=== PATIENT | female | born 1935 | race Caucasian/White ===

== ENCOUNTER 2017-07-25 07:29 | Outpatient (CLI) | payer MEDICARE, OTHER | END 2017-07-25 07:30 | disposition home or self-care (01) | LOC: BICMAMMO 07:29 | PROVIDERS: ATTEND Specialist | DX: Z12.31 Encounter for screening mammogram for malignant neoplasm of breast (principal) | CPT/HCPCS: 77063; G0202; 77067 ==

== ENCOUNTER 2018-03-13 08:30 | Inpatient (IN) | payer MEDICARE, OTHER ==
[2018-03-13 08:54] VITALS: BMI 26.6
[2018-03-18] MEDS ORDERED: Sodium Chloride 0.9% 100 ML ONE (07:57)
[2018-03-18] MEDS ORDERED: CEFAZOLIN/Water 2 GM/20 ML SYRINGE ONE (07:57)
[2018-03-18] MEDS ORDERED: Fentanyl 100 MCG/2 ML VIAL ONE (10:13)
[2018-03-18] MEDS ORDERED: Midazolam HCl 2 mg/2 ml Vial ONE (10:13)
[2018-03-18] MEDS ORDERED: Zolpidem Tartrate 5 MG TAB PO PRN ×2 (10:38→11:10)
[2018-03-18] MEDS ORDERED: traMADol HCl 50 MG TAB PO PRN ×3 (10:38→11:10)
[2018-03-18] MEDS ORDERED: Ketorolac Tromethamine 30 MG/ML VIAL IVP PRN (10:38)
[2018-03-18] MEDS ORDERED: Ondansetron HCl/PF 4 MG/2 ML Vial IVP PRN ×3 (10:38→12:29)
[2018-03-18] MEDS ORDERED: Promethazine HCl 25 MG/ML VIAL IM PRN ×3 (10:38→12:29)
[2018-03-18] MEDS ORDERED: Fentanyl 100 MCG/2 ML VIAL IV PRN (10:39)
[2018-03-18] MEDS ORDERED: HYDROcodone/Acetaminophen 7.5/325 mg Tablet PO PRN (10:39)
[2018-03-18] MEDS ORDERED: HYDROcodone/Acetaminophen 10/325 mg Tablet PO PRN (11:10)
[2018-03-18] MEDS ORDERED: diphenhydrAMINE 25 MG CAP PO PRN (11:10)
[2018-03-18] MEDS ORDERED: Acetaminophen 325 MG TAB PO PRN (11:10)
[2018-03-18] MEDS ORDERED: Alendronate Sodium 70 mg Tablet PO SCH (11:15)
[2018-03-18] MEDS ORDERED: Promethazine HCl 25 MG/ML VIAL SLOW IVP PRN (12:29)
--- NOTE | 2018-03-18 13:31 | OP ---
DATE OF PROCEDURE: 03/18/2018 PREOPERATIVE DIAGNOSIS: End-stage tricompartmental osteoarthritis, right knee. POSTOPERATIVE DIAGNOSIS: End-stage tricompartmental osteoarthritis, right knee. OPERATIVE PROCEDURE: Cemented cruciate-sparing computer-assisted navigated right total knee arthropl chelsi. SURGEON: David Oneill M.D. HOLE PUNCHER STRAP: Benjamin Agustin PA-C. ANESTHESIA: General via laryngeal mask airway augmented with indwelling femoral adductor canal block as well as single shot sciatic block. COMPONENTS USED: [employer] Triathlon primary cemented cruciate-sparing size 4 femoral comp onent with a primary cemented, size 4 tibial baseplate, 9 mm polyethylene fixed bearing insert, A29 p atellar button. TOURNIQUET TIME: 60 minutes at 300 mmHg. FLUIDS: 1000 mL crystalloid. OUTPUT: 200 mL clear yellow urine. ESTIMATED BLOOD LOSS: Less than 100 mL. DRAINS: None. SPECIMENS: None. COMPLICATIONS: None. COUNTS: Correct. FINDINGS: End-stage severe degenerative tricompartmental disease, bone on bone arthrosis, periarticu lar osteophyte formation, large serous effusion, hypertrophic synovium, and large periarticular float ing osteophyte at posterior compartments. INDICATIONS FOR SURGERY: Anisha is an 83-year-old white female who has had progressive right knee pain amplified with standing and walking for the last 10-12 years. She has failed conservative managemen t and elected to proceed with total knee arthroplasty as a definitive treatment of her pain. PROCEDURE IN DETAIL: After informed consent was obtained in the preoperative holding area. The romario ent was taken to the operative suite where general anesthesia was induced. Once adequate level of ge neral anesthesia was obtained, the patient was positioned and a well-padded tourniquet was placed elder und the right proximal thigh. The right lower extremity was then prepped and draped in the usual doc rile fashion. Prior to exsanguination, a time out was called and all members of the surgical team ag anuj upon site, surgeon, and patient. The extremity was then exsanguinated and the tourniquet was ra ised. A midline longitudinal incision was then made directly over the patella extending two fingerbr eadths above the superior pole of the patella and two fingerbreadths inferior to the inferior patella r pole of the patella. Deeper subcutaneous layers were dissected sharply and local bleeding was cont rolled with Bovie electrocautery. A quad tendon longitudinal split was then made sharply and a media n parapatellar arthrotomy was carried out both sharp and with Bovie electrocautery, carried down to o ne fingerbreadth medial to the tibial tubercle. The knee was then placed into flexion and the patell a was everted nicely, and a copious fat pad ectomy was performed allowing for greater exposure of the tibia. The computer-assisted distal femoral fiducial was then placed and pinned firmly, and the dis josefina femoral cutting guide was pinned firmly into place. The oscillating saw was then used to remove the appropriate amount of bone. The 4-in-1 cutting block was then placed on the distal femur and the oscillating saw was used to remove the appropriate amount of bone off of the anterior, posterior, an d chamfer cuts. After completion of the chamfer cuts, the box-cutting guide was placed, malleted fir mly into place and pinned securely, and an osteotome was used to make the distal cut and the oscillat ing saw was then used to make the medial and lateral box cuts. This came out quite nicely and was re moved with Bovie electrocautery, and the oscillating saw was then used to broaden the lateral medial nguyen of the box cut. After completion of bone cuts, the anterior cruciate ligament was resected sha rply and the posterior cruciate ligament retractor was placed and the tibia was subluxed for better e xposure. Partial meniscectomies were carried out, and the tibial computer-assisted fiducial was pinn ed, and the cutting guide was placed. Oscillating saw was then used to remove the bone with Hohmann retractors used to take care and protect the collateral ligaments. After the tibial resection was pe rformed, a laminar campus rep was placed in between the freshened bone cuts. The knee placed at 90 deg devon and further bilateral meniscectomies were carried out, and the curved osteotome and curettage wa s used to remove any excess bone spurs in the posterior compartment. The trial femoral component, ti bial baseplate were placed with the appropriate polyethylene trial insert with an appropriate polyeth ylene spacer and patellar button. The knee was taken through full range of motion with flexion and e xtension from 0-90 degrees and patellar broach squarely in the trochlea without any squinting or sub luxation noted. The knee was also stable to varus and valgus stressing at 0, 15, 45, and 90 degrees of flexion. The drawer was negative. All trial components were then removed and the keel punch was u sed to provide the appropriate defect in the tibia with a mallet. The freshened bone cuts were copio usly irrigated with pulsatile lavage of about 1-1/2 liters to remove all excess debris. The freshene d bone cuts were then dried and with suction and lap sponge. The knee was placed in flexion and retr actors were placed to provide access to all bone cuts. Tobramycin impregnated methyl methacrylate ce ment was then placed on the freshened bone cuts and implants which were malleted firmly into place. Curettage and [place] elevators were used to remove any excess bone cement. The knee was placed into f ull extension and the patellar button was placed under compression, and the cement was allowed to cur e. Once completed, the components were again taken through full range of motion and copious irrigati on of the knee was carried out with another liter of normal saline. All components were inspected fu lly with full range of motion and varus and valgus stressing. There was no laxity noted and full exte nsion was observed clinically. Primary closure was accomplished with #2 interrupted Vicryl stitch of the arthrotomy defect. This was oversewn with a #2 running Quill barbed stitch. The subcutaneous l carmella was then closed with a running 0 barbed Monocryl stitch and skin closure accomplished with a run mark subcuticular 3-0 Monocryl barbed Quill stitch and augmented with cement on the skin. Tourniquet was lowered. Good spontaneous return of distal pulses was noted clinically and a sterile dressing w as applied to the incision. The procedure was terminated without any complications. The patient was awakened in the operative suite and taken to the recovery room in stable condition.
[2018-03-18] MEDS ORDERED: Ondansetron HCl/PF 4 MG/2 ML Vial ONE (15:24)
[2018-03-18] MEDS ORDERED: PROPOFOL 200 MG/20 ML VIAL ONE (15:24)
[2018-03-18] MEDS ORDERED: Lidocaine 1% PF 5 ML VIAL ONE (15:24)
[2018-03-18] MEDS ORDERED: PHENYLEPHRINE-NS 100 MCG/ML 10 ML SYRINGE ONE (15:24)
--- NOTE | 2018-03-18 15:54 | RAD ---
RIGHT KNEE TWO VIEWS: History: Post op knee replacement follow up. FINDINGS/IMPRESSION: Post op changes are noted. Knee prosthesis has been placed. The component appear in adequate position and alignment. POS: [facility]
[2018-03-18] MEDS: CEFAZOLIN/Water 2 GM/20 ML SYRINGE SLOW IVP SCH ×2 (17:40→21:00)
[2018-03-18] MEDS: Carvedilol 6.25 MG TAB PO SCH (18:18)
[2018-03-18] MEDS: Sodium Chloride 0.9% 1,000 ML IV SCH ×2 (18:37→23:13)
[2018-03-18] MEDS: Aspirin 81 mg Enteric Coated Tablet PO SCH (20:53)
[2018-03-18] MEDS: Rosuvastatin 10 MG TAB PO SCH (20:54)
[2018-03-18] MEDS: Dronedarone HCl 400 MG TAB PO SCH (20:54)
[2018-03-18] MEDS: HYDROcodone/Acetaminophen 10/325 mg Tablet PO PRN (20:58)
[2018-03-18] MEDS ORDERED: Calcium Carbonate + Vit D 1 TAB PO SCH (21:00)
[2018-03-18] MEDS ORDERED: Non-Formulary Item 1 EACH (Ferrous Sulfate [Ferrous Sulfate] 325 MG) PO SCH (21:00)
--- NOTE | 2018-03-19 00:33 | CON ---
DATE OF CONSULTATION: 03/18/2018 CHIEF COMPLAINT ON ADMISSION: Right total knee replacement. HISTORY OF PRESENT ILLNESS: The patient is an 83-year-old female who has been struggling with arthri tis and pain in her right knee. She finally was needed replacement and saw Dr. David Oneill for such . He performed right total knee replacement on the day of consultation on 03/18/2018 and she has awo jocelynn from anesthesia without complaints of pain in the right knee. She denies any chest pain, shortne ss of breath or trouble with mentation. She feels very good and has had a good appetite, had no trou ble holding down her dinner. PAST MEDICAL HISTORY: Significant for dyslipidemia, postmenopausal, degenerative joint disease, GERD , hypertension, osteopenia, insomnia. PAST SURGICAL HISTORY: Hysterectomy, total abdominal hysterectomy with bilateral salpingo-oophorecto my, cataract surgery, and left total knee replacement done in 08/2015. She has also had a normal col onoscopy with benign polyps. ALLERGIES: SULFA. MEDICATIONS ON ADMISSION: Crestor 10 mg at bedtime, omeprazole 40 mg daily, aspirin 325 mg daily, ov er the counter Tums, Lunesta 1 mg at bedtime, Valsartan HCT 160/12.5 once a day, Premarin 0.3 mg yakelin y, Lanoxin unknown dosage; Multaq I believe 100 mg b.i.d., Tramadol 50 mg q.6 hours p.r.n. pain, milk of magnesia p.r.n. constipation, and Fosamax 70 mg once a week for osteopenia. FAMILY HISTORY: Father is . Mother is . Unknown. REVIEW OF SYSTEMS: General: Patient denies any fever, fatigue or malaise. HEENT: Denies headache, blurred vision. ENT: No sores, discharge from pharynx, ears or mouth. Neck: Denies any pain with range of motion. Chest: Denies shortness of breath or cough. Heart: Denies palpitations or irreg ular heartbeat. Abdomen: Denies nausea, vomiting, diarrhea. : Denies any blood in urine or stoo l or painful urination. Musculoskeletal: Has a wrap with numb right knee at this time, but otherwis e no significant discomfort. Skin: Without rashes or lesions. Neurologic: Denies any confusion or paresthesias. She does have anesthesia in the area of the right knee postop. PHYSICAL EXAMINATION: VITAL SIGNS: On admission, blood pressure is 115/55, O2 sat 95%, respirations 18, pulse 76, temperat ure 97.9. She weighs 155 pounds and denies any pain currently, so that would be a 0. GENERAL: She is well-developed elderly female, alert, oriented, and cooperative. HEENT: Normocephalic and atraumatic. Pupils are equal, round, and reactive to light. Extraocular m uscles intact. Arcus senilis bilaterally. TMs, nares, pharynx are clear. NECK: Supple, trachea midline, no mass. CHEST: Clear to auscultation. BREAST: Deferred. HEART: Regular rate and rhythm without murmur. ABDOMEN: Soft, nontender, no appreciable organomegaly. GENITOURINARY: Deferred. EXTREMITIES: With the right knee wrapped in Maximo wraps and cool compress in place, IV of pain medicat ion flowing. Other extremities without clubbing, cyanosis, or edema. SKIN: Without rashes or lesions. NEUROLOGIC: Cranial nerves are intact. Sensory exam except for the right knee is grossly intact. M ental status is at baseline. Unable to test gait and cerebellar function at this time or deep tendon reflexes. LABORATORY DATA: Lab work thus far, there is none. ASSESSMENT: 1. Status post right total knee replacement -- doing very well. 2. History of hypertension. 3. History of cardiac arrhythmia, stable. 4. Hypothyroid. PLAN: Plan is to continue patient on her usual medications. Pain management will be per Anesthesia. We will monitor her vital signs and provide any other assistance as needed. She will be serially r e-evaluated while in the hospital.
[2018-03-19] MEDS: HYDROcodone/Acetaminophen 7.5/325 mg Tablet PO PRN ×3 (01:21→13:55)
[2018-03-19] MEDS ORDERED: CEFAZOLIN/Water 2 GM/20 ML SYRINGE SLOW IVP SCH (05:00)
[2018-03-19] MEDS: Sodium Chloride 0.9% 1,000 ML IV SCH ×2 (06:45→19:06)
[2018-03-19 08:52] LABS: #Eosinphils 0.1 thou/uL (0.0-0.7); #Lymphocytes 0.7 thou/uL (1.20-3.40); #Monocytes 1.4 thou/uL (0.11-0.59); #Neutrophils 7.9 thou/uL (1.40-6.50); %Basophils 0.2 % (0.0-1.0); %Eosinophils 0.8 % (0.0-10.0); %Lymphocytes 6.9 % (21.0-51.0); %Monocytes 13.9 % (0.0-10.0); %Neutrophils 78.2 % (42.0-75.0); Hemoglobin 11.6 g/dL (12.0-16.0); Mean Corpuscular HGB CONC 34.3 g/dL (32.0-36.0); Mean Corpuscular Hemoglobin 31.6 pg (27.0-31.0); Mean Corpuscular Volume 92.2 fL (78.0-98.0); Mean Platelet Volume 8.3 fL (7.4-10.4); Platelet Count 138 thou/uL (130-400); Red Blood Cell (RBC) Count 3.67 mill/uL (4.20-5.40); White Blood Cell (WBC) Count 10.1 thou/uL (4.8-10.8)
[2018-03-19] MEDS ORDERED: Non-Formulary Item 1 EACH (Multivitamin [Multi-Vitamin Daily] 1 TAB) PO SCH (09:00)
[2018-03-19] MEDS ORDERED: Estrogens, Conjugated 0.3 MG TAB PO SCH (09:00)
[2018-03-19 09:10] LABS: Anion Gap 12 mmol/L (10-20); BUN (Urea Nitrogen) 12 mg/dL (9.8-20.1); Calc. Creatinine Clearance 51 mL/min (70-130); Calcium 8.9 mg/dL (7.8-10.44); Carbon Dioxide 25 mmol/L (23-31); Chloride 100 mmol/L (98-107); Estimated GFR-MDRD 58; Glucose 148 mg/dL (83-110); Potassium 4.6 mmol/L (3.5-5.1); Sodium 132 mmol/L (136-145)
[2018-03-19] MEDS: Senokot S 8.6-50 MG TAB PO SCH ×2 (09:11→20:33)
[2018-03-19] MEDS: Vit A,C & E/Lutein/Minerals Tablet PO SCH ×2 (09:11→20:33)
[2018-03-19] MEDS: Hydrochlorothiazide 25 MG TAB PO SCH (09:11)
[2018-03-19] MEDS: Dronedarone HCl 400 MG TAB PO SCH ×2 (09:12→20:30)
[2018-03-19] MEDS: Valsartan 80 MG TAB PO SCH (09:12)
[2018-03-19] MEDS: Ubidecarenone 50 MG CAP PO SCH (09:13)
[2018-03-19] MEDS: Ferrous Gluconate 324 MG TAB PO SCH ×2 (09:13→20:31)
[2018-03-19] MEDS: Multivitamin W/ Minerals 1 TAB PO SCH (09:13)
[2018-03-19] MEDS: Aspirin 81 mg Enteric Coated Tablet PO SCH ×2 (09:14→20:30)
[2018-03-19] MEDS: Carvedilol 6.25 MG TAB PO SCH ×2 (09:14→18:46)
[2018-03-19] MEDS: Enoxaparin Sodium 40 MG/0.4 ML SYRINGE SC SCH (09:15)
[2018-03-19] MEDS: Ropivacaine HCl/PF 250 ML in Premix Bag 1 BAG NERVE BLCK SCH (15:26)
[2018-03-19] MEDS: Rosuvastatin 10 MG TAB PO SCH (20:33)
[2018-03-20] MEDS: Sodium Chloride 0.9% 1,000 ML IV SCH ×2 (04:06→12:22)
[2018-03-20] MEDS: HYDROcodone/Acetaminophen 7.5/325 mg Tablet PO PRN (05:29)
[2018-03-20 05:39] LABS: Hemoglobin 10.4 g/dL (12.0-16.0); Mean Corpuscular Hemoglobin 30.9 pg (27.0-31.0); Mean Corpuscular Volume 90.8 fL (78.0-98.0); Platelet Count 148 thou/uL (130-400); RBC Distribution Width 11.9 % (11.5-14.5); Red Blood Cell (RBC) Count 3.38 mill/uL (4.20-5.40); White Blood Cell (WBC) Count 11.3 thou/uL (4.8-10.8)
[2018-03-20 05:48] LABS: Anion Gap 11 mmol/L (10-20); BUN (Urea Nitrogen) 14 mg/dL (9.8-20.1); Calc. Creatinine Clearance 58 mL/min (70-130); Calcium 9.2 mg/dL (7.8-10.44); Carbon Dioxide 27 mmol/L (23-31); Chloride 98 mmol/L (98-107); Estimated GFR-MDRD 68; Glucose 117 mg/dL (83-110); Sodium 132 mmol/L (136-145)
[2018-03-20] MEDS: Carvedilol 6.25 MG TAB PO SCH ×2 (08:30→17:19)
[2018-03-20] MEDS: Aspirin 81 mg Enteric Coated Tablet PO SCH ×2 (08:31→21:23)
[2018-03-20] MEDS: Vit A,C & E/Lutein/Minerals Tablet PO SCH ×2 (08:31→21:22)
[2018-03-20] MEDS: Senokot S 8.6-50 MG TAB PO SCH ×2 (08:33→21:23)
[2018-03-20] MEDS: Multivitamin W/ Minerals 1 TAB PO SCH (08:33)
[2018-03-20] MEDS: Hydrochlorothiazide 25 MG TAB PO SCH (08:34)
[2018-03-20] MEDS: Valsartan 80 MG TAB PO SCH (08:34)
[2018-03-20] MEDS: Dronedarone HCl 400 MG TAB PO SCH ×2 (08:36→21:24)
[2018-03-20] MEDS: Ubidecarenone 50 MG CAP PO SCH (08:36)
[2018-03-20] MEDS: Enoxaparin Sodium 40 MG/0.4 ML SYRINGE SC SCH (08:37)
[2018-03-20] MEDS: HYDROcodone/Acetaminophen 10/325 mg Tablet PO PRN (09:03)
[2018-03-20] MEDS: Ferrous Gluconate 324 MG TAB PO SCH ×2 (09:04→21:24)
[2018-03-20] MEDS: Ropivacaine HCl/PF 250 ML in Premix Bag 1 BAG NERVE BLCK SCH (19:30)
[2018-03-20] MEDS: Rosuvastatin 10 MG TAB PO SCH (21:23)
[2018-03-21] MEDS: Sodium Chloride 0.9% 1,000 ML IV SCH ×2 (01:27→12:10)
[2018-03-21 06:15] LABS: Hemoglobin 10.1 g/dL (12.0-16.0); Mean Corpuscular Hemoglobin 31.1 pg (27.0-31.0); Mean Corpuscular Volume 91.4 fL (78.0-98.0); Mean Platelet Volume 8.6 fL (7.4-10.4); Platelet Count 137 thou/uL (130-400); RBC Distribution Width 11.7 % (11.5-14.5); Red Blood Cell (RBC) Count 3.24 mill/uL (4.20-5.40); White Blood Cell (WBC) Count 9.7 thou/uL (4.8-10.8)
[2018-03-21] MEDS: Valsartan 80 MG TAB PO SCH (07:47)
[2018-03-21] MEDS: Carvedilol 6.25 MG TAB PO SCH (07:48)
[2018-03-21] MEDS: Ferrous Gluconate 324 MG TAB PO SCH (07:49)
[2018-03-21] MEDS: Aspirin 81 mg Enteric Coated Tablet PO SCH (07:49)
[2018-03-21] MEDS: Dronedarone HCl 400 MG TAB PO SCH (07:49)
[2018-03-21] MEDS: Vit A,C & E/Lutein/Minerals Tablet PO SCH (07:49)
[2018-03-21] MEDS: Enoxaparin Sodium 40 MG/0.4 ML SYRINGE SC SCH (07:50)
[2018-03-21] MEDS: Multivitamin W/ Minerals 1 TAB PO SCH (07:50)
[2018-03-21] MEDS: Senokot S 8.6-50 MG TAB PO SCH (07:50)
[2018-03-21] MEDS: Ubidecarenone 50 MG CAP PO SCH (07:50)
[2018-03-21] MEDS: Hydrochlorothiazide 25 MG TAB PO SCH (07:50)
[2018-03-21 08:22] VITALS: TEMP 98.8
[2018-03-21 11:59] VITALS: BP 103/65
--- NOTE | 2018-03-21 13:50 | EKG ---
Test Reason : Blood Pressure : / mmHG Vent. Rate : 113 BPM Atrial Rate : 300 BPM P-R Int : 000 ms QRS Dur : 088 ms QT Int : 278 ms P-R-T Axes : 000 048 047 degrees QTc Int : 381 ms Atrial fibrillation with rapid ventricular response Nonspecific ST abnormality , probably digitalis effect Abnormal ECG When compared with ECG of 13-MAR-2018 09:41, (Unconfirmed) Atrial fibrillation has replaced Electronic atrial pacemaker Vent. rate has increased BY [address] now depressed in Inferior leads Confirmed by SANDOVAL LANCASTER ([id number]) on 03/21/2018 1:50:14 PM Referred By: Tejal NOONAN Confirmed By:SANDOVAL LANCASTER
== END 2018-03-21 13:00 | DRG 470 ==
LOC: SJJU 03-18 07:24 → EDSTATUS 03-18 08:30 → SURG A 03-18 16:56
PROVIDERS: ADMIT Orthopaedic Surgery; ATTEND Orthopaedic Surgery
PROC: 0SRC0J9 Replacement of Right Knee Joint with Synthetic Substitute, Cemented, Open Approach (ICD-10-PCS; principal; 2018-03-18)
PROC: 8E0YXBZ Computer Assisted Procedure of Lower Extremity (ICD-10-PCS; 2018-03-18)
DX: M17.11 Unilateral primary osteoarthritis, right knee (principal); E78.5 Hyperlipidemia, unspecified; K21.9 Gastro-esophageal reflux disease without esophagitis; I10 Essential (primary) hypertension; M85.80 Other specified disorders of bone density and structure, unspecified site; E03.9 Hypothyroidism, unspecified; Z90.710 Acquired absence of both cervix and uterus; Z88.2 Allergy status to sulfonamides
CPT/HCPCS: 36415; 80048; 85027; 93005; 93010; C1713; C1776; G8978-GP-CK; G8979-GP-CI; J1650; J2001; J2250; J2405; J2704; J2795; J3010; J3370; J7050

== ENCOUNTER 2018-03-13 08:32 | Outpatient (CLI) | payer MEDICARE, OTHER ==
[2018-03-13 10:09] LABS: #Basophils 0.1 thou/uL (0.0-0.2); #Eosinphils 0.1 thou/uL (0.0-0.7); #Lymphocytes 1.6 thou/uL (1.20-3.40); #Monocytes 0.5 thou/uL (0.11-0.59); #Neutrophils 4.2 thou/uL (1.40-6.50); %Basophils 1.3 % (0.0-1.0); %Eosinophils 2.3 % (0.0-10.0); %Lymphocytes 24.1 % (21.0-51.0); %Neutrophils 64.3 % (42.0-75.0); Hemoglobin 12.9 g/dL (12.0-16.0); Mean Corpuscular HGB CONC 33.2 g/dL (32.0-36.0); Mean Corpuscular Hemoglobin 30.4 pg (27.0-31.0); Mean Corpuscular Volume 91.4 fL (78.0-98.0); Mean Platelet Volume 8.1 fL (7.4-10.4); Platelet Count 176 thou/uL (130-400); RBC Distribution Width 12.2 % (11.5-14.5); Red Blood Cell (RBC) Count 4.23 mill/uL (4.20-5.40); White Blood Cell (WBC) Count 6.5 thou/uL (4.8-10.8)
--- NOTE | 2018-03-13 10:21 | RAD ---
TWO VIEW CHEST: History: Pre-operative evaluation. FINDINGS: Lung kramer are clear. Heart and mediastinum appear unremarkable. Dual-lead pacemaker devise appears adequately positioned. Osseous structures unremarkable. IMPRESSION: Unremarkable chest. POS: [facility]
[2018-03-13 10:25] LABS: INR-International Normal Ratio 3.8; Prothrombin Time 37.1 SEC (12.0-14.7)
[2018-03-13 10:33] LABS: Anion Gap 11 mmol/L (10-20); BUN (Urea Nitrogen) 14 mg/dL (9.8-20.1); Calc. Creatinine Clearance 0 mL/min (70-130); Calcium 9.4 mg/dL (7.8-10.44); Carbon Dioxide 27 mmol/L (23-31); Chloride 106 mmol/L (98-107); Estimated GFR-MDRD 58; Glucose 85 mg/dL (83-110); Potassium 4.1 mmol/L (3.5-5.1); Sodium 140 mmol/L (136-145)
[2018-03-13 11:30] LABS: Bilirubin Small (Negative); Blood, Urine Negative (Negative); Clarity CLEAR (Clear); Glucose, Urine (Dipstick) Negative (Negative); Leukocyte Negative (Negative); Nitrite Negative (Negative); Protein, Urine (Dipstick) Negative (Neg-Trace); Specific Gravity, Urine 1.009 (1.002-1.036); Urobilinogen 0.2 mg/dL (0.2-1.0); pH, Urine 7.5 (5.0-9.0)
[2018-03-13 11:33] LABS: Bacteria/HPF Rare-Few HPF (None Seen); Hyaline Casts/LPF 0-3 HYALINE CAST LPF (0-3 Hyaline); Pathc Cast-AUWi Flag 0.14 (0-2.49); RBC/HPF 0-3 HPF (0-3); WBC/HPF 0-3 HPF (0-3)
== END 2018-03-13 08:33 | disposition home or self-care (01) ==
LOC: LABBT 08:32
PROVIDERS: ATTEND Orthopaedic Surgery
DX: Z01.818 Encounter for other preprocedural examination (principal); M17.11 Unilateral primary osteoarthritis, right knee
CPT/HCPCS: 71046; 80048; 81001; 85025; 85610; 86850; 86900; 86901; 87081; 93005; 93010

== ENCOUNTER 2018-06-24 10:40 | Emergency (ER) | payer MEDICARE, OTHER ==
[2018-06-24] MEDS ORDERED: Lidocaine 1% w/Epinephrine 1:100K 20 ML VIAL ONE (11:09)
[2018-06-24] MEDS ORDERED: Acetaminophen 500 MG TAB ONE (11:24)
--- NOTE | 2018-06-24 12:00 | CT ---
CT BRAIN WITHOUT CONTRAST: History: Trauma, fall from height of 3-5 feet. Headache. FINDINGS: No evidence of infarct, hemorrhage, midline shift, or abnormal extraaxial fluid collections are seen. The ventricular size is appropriate and the basal cisterns are patent. The bony calvarium is intact. The visualized paranasal sinuses and mastoid air cells are well aerated. IMPRESSION: No CT evidence of acute intracranial process. POS: [facility]
[2018-06-24] MEDS ORDERED: Bacitracin Zinc 1 Packet ONE (13:35)
== END 2018-06-24 13:36 | disposition home or self-care (01) ==
LOC: ERS 10:40
DX: S01.02XA Laceration with foreign body of scalp, initial encounter (principal); I10 Essential (primary) hypertension; Z79.01 Long term (current) use of anticoagulants; Z79.899 Other long term (current) drug therapy; Z79.82 Long term (current) use of aspirin; W17.89XA Other fall from one level to another, initial encounter
CPT/HCPCS: 12013; 70450; J2001

== ENCOUNTER 2018-08-13 09:33 | Outpatient (CLI) | payer MEDICARE, OTHER | END 2018-08-13 09:34 | disposition home or self-care (01) | LOC: BICMAMMO 09:33 | PROVIDERS: ATTEND Specialist | DX: Z12.31 Encounter for screening mammogram for malignant neoplasm of breast (principal) | CPT/HCPCS: 77063; 77067 ==

== ENCOUNTER 2018-09-11 04:47 | Outpatient (CLI) | payer MEDICARE, OTHER ==
[2018-09-11 16:29] LABS: Hemoglobin 5.9 g/dL (12.0-16.0); Mean Corpuscular HGB CONC 27.7 g/dL (32.0-36.0); Mean Corpuscular Hemoglobin 22.7 pg (27.0-31.0); Mean Corpuscular Volume 82.1 fL (78.0-98.0); Mean Platelet Volume 9.6 fL (7.4-10.4); Platelet Count 270 thou/uL (130-400); Red Blood Cell (RBC) Count 2.61 mill/uL (4.20-5.40); White Blood Cell (WBC) Count 5.6 thou/uL (4.8-10.8)
[2018-09-11 16:32] LABS: INR-International Normal Ratio 2.7; PTT 38.4 SEC (22.9-36.1); Prothrombin Time 28.3 SEC (12.0-14.7)
[2018-09-11 16:48] LABS: #Basophils 0.1 thou/uL (0.0-0.2); #Eosinphils 0.1 thou/uL (0.0-0.7); #Lymphocytes 1.2 thou/uL (1.20-3.40); #Monocytes 0.6 thou/uL (0.11-0.59); #Neutrophils 3.6 thou/uL (1.40-6.50); %Basophils 1.4 % (0.0-1.0); %Eosinophils 0.9 % (0.0-10.0); %Lymphocytes 22.1 % (21.0-51.0); %Monocytes 10.9 % (0.0-10.0); %Neutrophils 64.7 % (42.0-75.0); Anisocytosis SLIGHT = 6-15 cells (100X) (0-5/hpf); Hypochromia SLIGHT = 6-15 cells (100X) (0-5/hpf); MDiff Complete? YES; Platelet Morphology Comment Appears Adequate; Poikilocytosis SLIGHT = 6-15 cells (100X) (0-5/hpf); Polychromasia SLIGHT = 2-3 cells (100X) (0-2/hpf)
[2018-09-11 16:54] LABS: Anion Gap 13 mmol/L (10-20); BUN (Urea Nitrogen) 13 mg/dL (9.8-20.1); Calc. Creatinine Clearance 0 mL/min (70-130); Carbon Dioxide 21 mmol/L (23-31); Chloride 109 mmol/L (98-107); Estimated GFR-MDRD 68; Glucose 93 mg/dL (83-110); Potassium 3.7 mmol/L (3.5-5.1); Sodium 139 mmol/L (136-145)
== END 2018-09-11 04:48 | disposition home or self-care (01) ==
LOC: LABBT 04:47
PROVIDERS: ATTEND Internal Medicine Cardiovascular Disease
DX: Z01.818 Encounter for other preprocedural examination (principal); I48.91 Unspecified atrial fibrillation
CPT/HCPCS: 80048; 85025; 85610; 85730

== ENCOUNTER 2018-09-12 12:11 | Emergency (ER) | payer MEDICARE, OTHER ==
[2018-09-12 12:28] LABS: #Basophils 0.1 thou/uL (0.0-0.2); #Eosinphils 0.1 thou/uL (0.0-0.7); #Lymphocytes 1.8 thou/uL (1.20-3.40); #Monocytes 0.9 thou/uL (0.11-0.59); #Neutrophils 4.4 thou/uL (1.40-6.50); %Basophils 1.8 % (0.0-1.0); %Eosinophils 1.8 % (0.0-10.0); %Lymphocytes 24.4 % (21.0-51.0); %Monocytes 12.1 % (0.0-10.0); %Neutrophils 59.8 % (42.0-75.0); Hemoglobin 6.7 g/dL (12.0-16.0); Mean Corpuscular HGB CONC 27.4 g/dL (32.0-36.0); Mean Corpuscular Hemoglobin 22.3 pg (27.0-31.0); Mean Corpuscular Volume 81.4 fL (78.0-98.0); Platelet Count 332 thou/uL (130-400); RBC Distribution Width 20.4 % (11.5-14.5); White Blood Cell (WBC) Count 7.3 thou/uL (4.8-10.8)
[2018-09-12 12:50] LABS: ALT (SGPT) 7 U/L (8-55); AST (SGOT) 14 U/L (5-34); Alkaline Phosphatase 78 U/L (40-150); Anion Gap 9 mmol/L (10-20); BUN (Urea Nitrogen) 9 mg/dL (9.8-20.1); Bilirubin, Total 0.4 mg/dL (0.2-1.2); Calc. Creatinine Clearance 0 mL/min (70-130); Calcium 9.3 mg/dL (7.8-10.44); Carbon Dioxide 23 mmol/L (23-31); Chloride 110 mmol/L (98-107); Estimated GFR-MDRD 70; Globulin 2.4 g/dL (2.4-3.5); Glucose 97 mg/dL (83-110); Potassium 3.9 mmol/L (3.5-5.1); Protein, Total 6.4 g/dL (6.0-8.3); Sodium 138 mmol/L (136-145)
[2018-09-12 13:03] LABS: INR-International Normal Ratio 2.3; Prothrombin Time 25.2 SEC (12.0-14.7)
[2018-09-12 17:30] LABS: Bilirubin Negative (Negative); Blood, Urine Negative (Negative); Clarity CLEAR (Clear); Glucose, Urine (Dipstick) Negative (Negative); Leukocyte Negative (Negative); Nitrite Negative (Negative); Protein, Urine (Dipstick) Negative (Neg-Trace); Specific Gravity, Urine 1.006 (1.002-1.036); Urobilinogen 0.2 mg/dL (0.2-1.0)
== END 2018-09-12 17:43 | disposition home or self-care (01) ==
LOC: ERS 12:11
DX: I48.91 Unspecified atrial fibrillation (principal); D64.9 Anemia, unspecified; I10 Essential (primary) hypertension; Z79.01 Long term (current) use of anticoagulants; Z79.899 Other long term (current) drug therapy
CPT/HCPCS: 36430; 80053; 81003; 82274; 85025; 85610; 85730; 86850; 86900; 86901; 86920; 93005; P9016

== ENCOUNTER 2018-09-25 12:11 | Day surgery (SDC) | payer MEDICARE, OTHER ==
[2018-09-24 13:12] VITALS: BMI 24.7
[2018-09-25 14:13] LABS: #Basophils 0.1 thou/uL (0.0-0.2); #Eosinphils 0.1 thou/uL (0.0-0.7); #Lymphocytes 1.5 thou/uL (1.20-3.40); #Monocytes 0.7 thou/uL (0.11-0.59); #Neutrophils 5.2 thou/uL (1.40-6.50); %Basophils 0.7 % (0.0-1.0); %Eosinophils 1.4 % (0.0-10.0); %Lymphocytes 19.4 % (21.0-51.0); %Monocytes 9.4 % (0.0-10.0); %Neutrophils 69.1 % (42.0-75.0); Mean Corpuscular Volume 83.3 fL (78.0-98.0); Mean Platelet Volume 10.1 fL (7.4-10.4); Platelet Count 283 thou/uL (130-400); White Blood Cell (WBC) Count 7.5 thou/uL (4.8-10.8)
[2018-09-25] MEDS ORDERED: PROPOFOL 200 MG/20 ML VIAL ONE (16:40)
--- NOTE | 2018-09-25 20:41 | OP ---
DATE OF PROCEDURE: 09/25/2018 PROCEDURE PERFORMED: Esophagogastroduodenoscopy. PREPROCEDURE DIAGNOSES: 1. Profound anemia. 2. Evaluate for possible upper gastrointestinal source of anemia. POSTPROCEDURE DIAGNOSES: 1. Exam to second portion of duodenum. 2. Small hiatal hernia. 3. Otherwise, normal esophagogastroduodenoscopy. DESCRIPTION OF PROCEDURE: Written informed consent was obtained. The patient was brought to the endoscopy suite. Total intravenous anesthesia was provided by Dr. Hari Cornejo. The patient was placed in the left lateral decubitus position. A bite block was inserted into the mouth. When adequate sedation was achieved, a Pentax video diagnostic gastroscope was introduced into the oral cavity and the esophagus was carefully intubated. The gastroscope was advanced under direct visualization to the second portion of the duodenum. Endoscopic findings revealed a small sliding hiatal hernia about 1 to 2 cm in length. There was no evidence of erosive esophagitis or esophageal stricture. The stomach was then entered and carefully examined. This included a retroflex view of the cardia and fundus. No ulcers, gastritis, or active bleeding site was identified. The duodenum from the bulb to the second portion was then inspected and appeared grossly normal. No vascular ectasias were seen. The stomach was decompressed as the endoscope was removed from the patient. She was transferred to the Day Stay surgery area for postprocedure monitoring. There were no immediate complications. RECOMMENDATIONS: 1. Resume previous diet and medications. 2. We will speak to the patient about the video capsule endoscopy of the small bowel to complete my evaluation of the GI tract. 3. Follow up with me after the video capsule endoscopy is completed. Job ID: [id number]
== END 2018-09-25 15:25 | disposition home or self-care (01) ==
LOC: SDC 12:11
PROVIDERS: ATTEND Internal Medicine Gastroenterology
PROC: 0DJ08ZZ Inspection of Upper Intestinal Tract, Via Natural or Artificial Opening Endoscopic (ICD-10-PCS; principal; 2018-09-25)
DX: D50.9 Iron deficiency anemia, unspecified (principal); K44.9 Diaphragmatic hernia without obstruction or gangrene; I48.2 Chronic atrial fibrillation; E78.00 Pure hypercholesterolemia, unspecified; I10 Essential (primary) hypertension; M19.90 Unspecified osteoarthritis, unspecified site; Z79.01 Long term (current) use of anticoagulants; Z79.82 Long term (current) use of aspirin; Z79.83 Long term (current) use of bisphosphonates; Z79.899 Other long term (current) drug therapy; Z88.2 Allergy status to sulfonamides; Z88.5 Allergy status to narcotic agent
CPT/HCPCS: 85025; J2704

== ENCOUNTER 2019-08-14 09:23 | Outpatient (CLI) | payer MEDICARE, OTHER ==
--- NOTE | 2019-08-14 10:32 | MMO ---
Bilateral MAMMO Bilat Screen [facility]. CLINICAL HISTORY: Patient is 84 years old and is seen for screening. The patient has no family history of breast cancer. The patient has no personal history of cancer. VIEWS: The views performed were: bilateral craniocaudal with tomosynthesis and bilateral mediolateral oblique with tomosynthesis. FILMS COMPARED: The present examination has been compared to prior imaging studies performed at [facility] on 07/21/2015, 07/23/2016, 07/25/2017 and 08/13/2018. This study has been interpreted with the assistance of computer-aided detection. MAMMOGRAM FINDINGS: The breasts are heterogeneously dense, which could obscure a lesion on mammography. There are no suspicious masses, suspicious calcifications, or new areas of architectural distortion. IMPRESSION: THERE IS NO MAMMOGRAPHIC EVIDENCE OF MALIGNANCY. A ROUTINE FOLLOW-UP MAMMOGRAM IN 1 YEAR IS RECOMMENDED. THE RESULTS OF THIS EXAM WERE SENT TO THE PATIENT. ACR BI-RADS Category 1 - Negative MAMMOGRAPHY NOTE: 1. A negative mammogram report should not delay a biopsy if a dominant of clinically suspicious mass is present. 2. Approximately 10% to 15% of breast cancers are not detected by mammography. 3. Adenosis and dense breasts may obscure an underlying neoplasm. Reported by: PRAVEEN RANGEL MD Electonically Signed: [id number]
== END 2019-08-14 09:24 | disposition home or self-care (01) ==
LOC: BICMAMMO 09:23
PROVIDERS: ATTEND Specialist
DX: Z12.31 Encounter for screening mammogram for malignant neoplasm of breast (principal)
CPT/HCPCS: 77063; 77067

== ENCOUNTER 2020-08-18 10:48 | Outpatient (CLI) | payer MEDICARE, OTHER ==
--- NOTE | 2020-08-18 12:54 | MMO ---
Bilateral MAMMO Bilat Screen [facility]. CLINICAL HISTORY: Patient is 85 years old and is seen for screening. The patient has no family history of breast cancer. The patient has no personal history of cancer. VIEWS: The views performed were: bilateral craniocaudal with tomosynthesis and bilateral mediolateral oblique with tomosynthesis. FILMS COMPARED: The present examination has been compared to prior imaging studies performed at [facility] on 07/23/2016, 07/25/2017, 08/13/2018 and 08/14/2019. This study has been interpreted with the assistance of computer-aided detection. MAMMOGRAM FINDINGS: The breasts are heterogeneously dense, which could obscure a lesion on mammography. There are no suspicious masses, suspicious calcifications, or new areas of architectural distortion. IMPRESSION: THERE IS NO MAMMOGRAPHIC EVIDENCE OF MALIGNANCY. A ROUTINE FOLLOW-UP MAMMOGRAM IN 1 YEAR IS RECOMMENDED. THE RESULTS OF THIS EXAM WERE SENT TO THE PATIENT. ACR BI-RADS Category 1 - Negative MAMMOGRAPHY NOTE: 1. A negative mammogram report should not delay a biopsy if a dominant of clinically suspicious mass is present. 2. Approximately 10% to 15% of breast cancers are not detected by mammography. 3. Adenosis and dense breasts may obscure an underlying neoplasm. Reported by: MARIA ESTHER HAHN MD Electonically Signed: [id number]
== END 2020-08-18 10:49 | disposition home or self-care (01) ==
LOC: BICMAMMO 10:48
PROVIDERS: ATTEND Specialist
DX: Z12.31 Encounter for screening mammogram for malignant neoplasm of breast (principal)
CPT/HCPCS: 77063; 77067

== ENCOUNTER 2021-09-04 13:25 | Outpatient (CLI) | payer MEDICARE, OTHER | END 2021-09-04 13:26 | disposition home or self-care (01) | LOC: BICMAMMO 13:25 | PROVIDERS: ATTEND Specialist | DX: Z12.31 Encounter for screening mammogram for malignant neoplasm of breast (principal) | CPT/HCPCS: 77063; 77067 ==

== ENCOUNTER 2022-10-09 10:42 | Outpatient (CLI) | payer MEDICARE, OTHER | END 2022-10-09 10:43 | disposition home or self-care (01) | LOC: BICMAMMO 10:42 | PROVIDERS: ATTEND Specialist | DX: Z12.31 Encounter for screening mammogram for malignant neoplasm of breast (principal); N64.89 Other specified disorders of breast | CPT/HCPCS: 77063; 77067 ==

== ENCOUNTER 2023-10-11 11:32 | Outpatient (CLI) | payer MEDICARE, OTHER | END 2023-10-11 11:33 | disposition home or self-care (01) | LOC: BICMAMMO 11:32 | PROVIDERS: ATTEND Specialist | DX: Z12.31 Encounter for screening mammogram for malignant neoplasm of breast (principal) | CPT/HCPCS: 77063; 77067 ==

== ENCOUNTER 2024-01-16 11:29 | Outpatient (CLI) | payer MEDICARE, OTHER | END 2024-01-16 11:30 | disposition home or self-care (01) | LOC: BICRAD 11:29 | PROVIDERS: ATTEND Specialist | DX: R05.9 Cough, unspecified (principal); J98.4 Other disorders of lung | CPT/HCPCS: 71046 ==